=== PATIENT | female | born 1985 | race Caucasian/White ===

== ENCOUNTER 2024-09-25 22:41 | Emergency (ER) | payer OTHER ==
[~2024-09-25] VITALS: Ht 152.4 cm; Wt 100.0 kg
[2024-09-25 22:56] VITALS: PULSE 89; RESP 16; TEMP 98.6; O2SAT 100
[2024-09-25] MEDS ORDERED: CLEOCIN HCL300 MG PO (23:17)
== END 2024-09-25 23:31 | disposition home or self-care (01) ==
LOC: FSED 23:10
DX: L03.113 Cellulitis of right upper limb (principal)
CPT/HCPCS: 99283